=== PATIENT | female | born 1975 | race Two or more races ===

== ENCOUNTER 2017-03-02 20:38 | Emergency (ER) | payer SELFPAY ==
[~2017-03-02] VITALS: Ht 165.1 cm; Wt 78.9 kg
[2017-03-02 20:38] VITALS: BP 110/64
== END 2017-03-03 00:35 | disposition left against medical advice (07) ==
LOC: ER 20:41
DX: Z53.21 Procedure and treatment not carried out due to patient leaving prior to being seen by health care provider (principal)
CPT/HCPCS: A4606; Z7610